=== PATIENT | male | born 1945 | race Hispanic/Latino ===

== ENCOUNTER 2023-06-28 07:39 | Observation (INO) | payer OTHER ==
[~2023-06-28] VITALS: Ht 172.7 cm; Wt 84.5 kg
[2023-06-28 10:13] LABS: BASOPHILS # (AUTO) 0.05 K/uL (0.00-0.20); BASOPHILS % (AUTO) 0.7 % (0.0-5.0); EOSINOPHILS # (AUTO) 0.35 K/uL (0.00-0.70); EOSINOPHILS % (AUTO) 4.7 % (0.0-8.0); HEMATOCRIT 40.3 % (42-54); IMMATURE GRANULOCYTE ABSOLUTE 0.03 K/uL (0-1); LYMPHOCYTES # (AUTO) 0.9 K/uL (1.0-4.8); LYMPHOCYTES % (AUTO) 12.2 % (21.0-51.0); MEAN CORPUSCULAR HEMOGLOBIN 29.6 pg (27.0-33.0); MEAN CORPUSCULAR HGB CONC 32.5 g/dL (32.0-36.0); MEAN CORPUSCULAR VOLUME 91.2 fL (79-99); MONOCYTES # (AUTO) 0.5 K/uL (0.1-1.0); MONOCYTES % (AUTO) 7.2 % (3.0-13.0); NEUTROPHILS # (AUTO) 5.6 K/uL (1.8-7.7); NEUTROPHILS % (AUTO) 74.8 % (40.0-77.0); PLATELET COUNT (AUTO) 275 K/uL (130-400); RED BLOOD CELL COUNT(AUTO) 4.42 MIL/uL (4.50-6.20); RED CELL DISTRIBUTION WIDTH 13.6 % (11.0-15.5); WHITE BLOOD COUNT (AUTO) 7.5 K/uL (4.8-10.8)
[2023-06-28] MEDS ORDERED: LACTULOSE 20 GM/30 ML UDCUP PO ONE ×2 (10:30→12:30)
[2023-06-28 10:50] LABS: CREATININE 1.2 mg/dL (0.5-1.5); POTASSIUM 4.5 mmol/L (3.5-5.1)
[2023-06-28 10:52] LABS: ALBUMIN 3.6 g/dL (3.5-5.0); BILIRUBIN,TOTAL 0.4 mg/dL (0.2-1.0); TOTAL PROTEIN, SERUM 7.4 g/dL (6.0-8.3)
[2023-06-28] MEDS: 1/2 NS 1000ML 1,000 ML IV SCH (11:02)
[2023-06-28 11:45] VITALS: O2SAT 97
[2023-06-28] MEDS ORDERED: PEG 3350/NA SULF,BICARB,CL/KCL 4000 ML SOLN PO ONE (13:00)
[2023-06-28] MEDS: BISACODYL 5 MG TABLET.DR PO SCH ×2 (13:29→20:53)
[2023-06-28] MEDS ORDERED: AUD IH (15:01)
[2023-06-28] MEDS ORDERED: CYAN10007 IJ (15:01)
[2023-06-28] MEDS ORDERED: AMLO-257 PO (15:01)
[2023-06-28] MEDS ORDERED: HYDR-4154 PO (15:01)
[2023-06-28] MEDS ORDERED: LISI40TA9 PO (15:01)
[2023-06-28] MEDS ORDERED: BRIM5DRO21 OP (15:01)
[2023-06-28] MEDS ORDERED: VIT C (15:01)
[2023-06-28] MEDS ORDERED: DORZ10DR10 OP (15:01)
[2023-06-28] MEDS ORDERED: VIT1TABL66 PO (15:01)
[2023-06-28] MEDS ORDERED: LATA2.5D14 OP (15:01)
[2023-06-28] MEDS ORDERED: BUDE0.5A3 IH (15:01)
[2023-06-28] MEDS ORDERED: ALBU2.5V2 IH (15:01)
[2023-06-28] MEDS ORDERED: ATOR10 PO (15:01)
[2023-06-28 16:00] VITALS: BP 139/85; PULSE 61; RESP 16
[2023-06-28 20:00] VITALS: BP 147/80; PULSE 72; RESP 20; O2SAT 95
[2023-06-28 23:34] VITALS: BP 129/69; PULSE 73; RESP 20
[2023-06-29] VITALS (19 sets, daily range): BP systolic 115–142; BP diastolic 59–87; PULSE 57–84; RESP 16–22; O2SAT 98
[2023-06-29 06:58] LABS: INR < 0.93 (0.85-1.15); PROTHROMBIN TIME 10.6 SEC (9.6-11.6)
[2023-06-29] MEDS: BISACODYL 5 MG TABLET.DR PO SCH (09:00)
[2023-06-29] MEDS: 1/2 NS 1000ML 1,000 ML IV SCH (10:30)
[2023-06-29 10:39] LABS: HEMATOCRIT 37.4 % (42-54); MEAN CORPUSCULAR HEMOGLOBIN 29.8 pg (27.0-33.0); MEAN CORPUSCULAR HGB CONC 31.3 g/dL (32.0-36.0); MEAN CORPUSCULAR VOLUME 95.4 fL (79-99); RED BLOOD CELL COUNT(AUTO) 3.92 MIL/uL (4.50-6.20); RED CELL DISTRIBUTION WIDTH 13.6 % (11.0-15.5)
[2023-06-29 10:41] LABS: CREATININE 1.1 mg/dL (0.5-1.5)
[2023-06-29] MEDS ORDERED: PROPOFOL 10 MG/ML 20ML VIAL IV ONE (12:57)
== END 2023-06-29 16:30 | disposition home or self-care (01) ==
LOC: EDH 07:39 → EDHIP 07:40 → UNDOADMOB 09:48 → DIRECT 10:07 → EDHIP 10:07 → 3BH 11:45 → DIRECT 11:45
PROVIDERS: ADMIT Internal Medicine Infectious Disease; ATTEND Internal Medicine Infectious Disease
DX: K63.5 Polyp of colon (principal); K64.1 Second degree hemorrhoids; K57.30 Diverticulosis of large intestine without perforation or abscess without bleeding; I10 Essential (primary) hypertension; E66.9 Obesity, unspecified; J44.9 Chronic obstructive pulmonary disease, unspecified; Z86.73 Personal history of transient ischemic attack (TIA), and cerebral infarction without residual deficits; Z87.19 Personal history of other diseases of the digestive system; Z68.28 Body mass index [BMI] 28.0-28.9, adult; Z86.010 Personal history of colon polyps; Z79.899 Other long term (current) drug therapy
CPT/HCPCS: 80053; 85025; 36415 ×2; 80048; 85027; 85610; 85730; 88305; 45380; 45385; G0378 ×28; J2704; A4620; A4215 ×2; A4223; A7002; A4222; A4221; A4663; J7030; A4606; J3490